=== PATIENT | female | born 1985 | race Caucasian/White ===

== ENCOUNTER 2017-10-19 06:02 | Inpatient (IN) | payer BC ==
[~2017-10-19 06:02] MED LIST: Buffered Lidocaine 0.9% SYRIN* 5 ML/SYR SYRINGE INTRADERM ONE; Famotidine IV* 10 MG/ML 2 ML (20 mg) IV ONE
[2017-10-19] MEDS ORDERED: ceFOXitin 2 GM IVPREMIX* 2 GM/50 ML BAG IVPB ONE (07:00)
[2017-10-19] MEDS ORDERED: Midazolam* 1 MG/ML 5 ML VIAL (5 MG) ONE (07:38)
[2017-10-19] MEDS ORDERED: fentaNYL* 50 MCG/ML 2 ML VIAL (100 MCG VIAL) ONE (07:38)
[2017-10-19] MEDS ORDERED: Morphine PF AMP (0.5MG/ML)* 5 MG/10 ML AMP ONE (07:38)
[2017-10-19] MEDS ORDERED: KETAMINE HCL* 50 MG/ML 10 ML VIAL ONE (07:38)
[2017-10-19] MEDS ORDERED: DiMENhydriNATE IV* 50 MG/ML VIAL IV PUSH PRN (08:17)
[2017-10-19] MEDS ORDERED: Naloxone* 0.4 MG/ML 1 ML VIAL IV PRN ×2 (08:17→08:19)
[2017-10-19] MEDS ORDERED: PROCHLORPERAZINE INJ 5 MG/ML 2 ML VIAL IV PRN (08:17)
[2017-10-19] MEDS ORDERED: Naloxone* 2 MG in NS 0.9% 250 ML* 250 ML IV PRN (08:17)
[2017-10-19] MEDS ORDERED: oxyCODONE/Acetamin 5/325 MG* TAB PO PRN ×2 (08:17→23:55)
[2017-10-19] MEDS ORDERED: Nalbuphine* 20 MG/ML 1 ML VIAL IV PRN (08:17)
[2017-10-19] MEDS ORDERED: diPHENhydraMINE IV* 50 MG/ML 1 ml VIAL (BENADRYL) IV PRN (08:17)
[2017-10-19] MEDS ORDERED: fentaNYL* 50 MCG/ML 2 ML VIAL (100 MCG VIAL) IV PRN (08:19)
[2017-10-19] MEDS ORDERED: EPHEDrine (Pressors)* 50 MG/ML VIAL ONE (08:59)
[2017-10-19] MEDS ORDERED: Bupivacaine-MPF SPINAL* 7.5 MG/2 ML AMP ONE (08:59)
[2017-10-19] MEDS ORDERED: Scopolamine 1.5 mg* PATCH ONE (08:59)
[2017-10-19] MEDS ORDERED: Phenylephrine IV* 40 MCG/ML 10 ML SYRINGE ONE (08:59)
[2017-10-19] MEDS ORDERED: Lidocaine 2% PF * 5 ML VIAL ONE (08:59)
[2017-10-19] MEDS ORDERED: Ketorolac INJ* 30 MG/ML 1 ML VIAL ONE (09:00)
[2017-10-19] MEDS ORDERED: PROCHLORPERAZINE INJ 5 MG/ML 2 ML VIAL ONE (09:00)
[2017-10-19] MEDS ORDERED: Witch Hazel PAD* JAR TOPICAL PRN (10:02)
[2017-10-19] MEDS: Ibuprofen TAB* 600 MG PO SCH ×3 (10:32→21:58)
[2017-10-19] MEDS: Simethicone TAB* 80 MG TAB.CHEW PO SCH ×3 (12:52→21:58)
[2017-10-19] MEDS: Docusate CAP* 100 MG PO SCH ×2 (12:52→21:58)
[2017-10-20] MEDS: oxyCODONE/Acetamin 5/325 MG* TAB PO PRN ×5 (02:08→21:06)
[2017-10-20] MEDS: Ibuprofen TAB* 600 MG PO SCH ×4 (04:45→23:03)
[2017-10-20 06:36] LABS: ABS Basophils 0.1 10^3/ul (0-0.2); ABS Eosinophils 0 10^3/ul (0-0.6); ABS Lymphocytes 2.3 10^3/ul (1.0-4.8); ABS Monocytes 0.9 10^3/ul (0-0.8); ABS Neutrophils 7.1 10^3/ul (1.5-7.7); ABS Nucleated RBC 0 10^3/ul; Eosinophil % 0.5 % (0-6); Hematocrit 27 % (35-47); Hemoglobin 8.8 g/dl (12.0-16.0); Lymphocyte % 22.1 % (25-47); Mean Corpuscular HGB Conc 33 g/dl (31-36); Mean Corpuscular Hemoglobin 26 pg (27-31); Mean Corpuscular Volume 79 fL (80-97); Mean Platelet Volume 9.4 um3 (7.4-10.4); Nucleated Red Blood Cells % 0; Platelet Count 155 10^3/ul (150-450); Red Blood Count 3.37 10^6/ul (4.0-5.4); Red Cell Distribution Width 15 % (10.5-15); White Blood Count 10.4 10^3/ul (3.5-10.8)
[2017-10-20] MEDS: Simethicone TAB* 80 MG TAB.CHEW PO SCH ×3 (08:10→21:06)
[2017-10-20] MEDS: Docusate CAP* 100 MG PO SCH ×3 (08:10→21:06)
[2017-10-20] MEDS: Ferrous Gluconate TAB* 324 MG TAB PO SCH ×2 (09:00→21:06)
--- NOTE | 2017-10-20 21:44 | OP ---
DATE OF OPERATION: 10/19/17 - ROOM #116 DATE OF : 85 SURGEON: Shefali Escobar MD HOSPITALIST NOCTURNIST PHYSICIAN: Anup Grant CNM ANESTHESIOLOGIST: Yemi Carroll MD ANESTHESIA: Spinal. PRE-OP DIAGNOSES: A 39 weeks' gestation with history of third-degree laceration and hemorrhage, and now with satisfied parity. POST-OP DIAGNOSES: A 39 weeks' gestation with history of third-degree laceration and hemorrhage, and now with satisfied parity. OPERATIVE PROCEDURE: Primary low-transverse section and bilateral tubal ligation. INDICATIONS: This patient is a 32-year-old 2, para 1, who reported a history of a third-degree laceration with difficult recovery after her last delivery. In addition, she also had a hemorrhage, which required transfusion. After extensive counseling, the patient desired to have a primary section performed in order to avoid these complications of vaginal delivery. In addition, the patient strongly desired to have a permanent sterilization. She is extensively counseled and consent was signed. ESTIMATED BLOOD LOSS: 800 cc. URINE OUTPUT: 1000 cc. IV FLUIDS: 3000 cc lactated Ringer's. MATERIALS TO LAB: Cord blood and bilateral tube segments. FINDINGS: Normal-appearing uterus, fallopian tubes, and ovaries. Delivery is productive of a 9-pound 15-ounce male with Apgars of 9 and 9. Time of delivery was 0823. DESCRIPTION OF PROCEDURE: The risks, benefits, and alternatives were described to the patient and informed consent was obtained. The patient was taken to the operating room with IV running where spinal anesthesia was induced and found to be adequate. The patient was prepped and draped in the normal sterile fashion in the dorsal supine position with leftward tilt. A Pfannenstiel skin incision was made with a scalpel and this was carried down to the underlying fascia sharply. The fascia was then scored in the midline with the scalpel. The incision was extended using Cunningham scissors. The rectus muscles were dissected off the rectus fascia using blunt and sharp dissection. The rectus muscles were in the midline bluntly. The peritoneum was also entered bluntly. A bladder blade was placed. A bladder flap was created sharply using Metzenbaum scissors. A low transverse uterine incision was made with the scalpel. This was carried down to the amniotic cavity which was productive of clear fluid. The incision was extended with blunt traction. The head was elevated to the level of the incision without difficulty and delivered through the incision. With fundal pressure, the shoulders and body delivered without difficulty. The infant had an excellent tone and cried immediately on delivery. The cord was doubly clamped and cut. The infant was then handed to the awaiting water pumping station engineer. Cord blood was collected. The placenta then delivered with manual extraction. The uterus was then exteriorized and cleared of all clots and debris. Uterine incision was reapproximated using 0 Polysorb in a running-locked fashion. A second layer of imbricating sutures of 0 Polysorb was also placed with good hemostasis. The posterior cul-de-sac was irrigated with saline. The uterus was then returned to the abdomen, and the incision was reinspected and noted to be hemostatic. The peritoneum was closed with 2-0 chromic in a running fashion. The fascia was closed with 0 Polysorb in a running fashion. Subcutaneous tissues were reapproximated using 2-0 chromic and interrupted sutures. The skin was then closed with 4-0 Monocryl in a subcuticular stitch. Mastisol and Steri-Strips were placed over the incision which was then covered with a sterile bandage. The patient tolerated the procedure well. Sponge, lap, and needle counts were correct x2. [id number]/[facility] #: [id number] KATHARINA
[2017-10-21] MEDS: oxyCODONE/Acetamin 5/325 MG* TAB PO PRN ×5 (00:59→20:54)
[2017-10-21] MEDS: Ibuprofen TAB* 600 MG PO SCH ×3 (05:00→18:25)
[2017-10-21] MEDS: Simethicone TAB* 80 MG TAB.CHEW PO SCH ×5 (08:17→20:53)
[2017-10-21] MEDS: Ferrous Gluconate TAB* 324 MG TAB PO SCH ×2 (08:17→20:54)
[2017-10-21] MEDS: Docusate CAP* 100 MG PO SCH ×3 (08:17→20:53)
[2017-10-22] MEDS: Ibuprofen TAB* 600 MG PO SCH ×4 (00:10→12:20)
[2017-10-22] MEDS: oxyCODONE/Acetamin 5/325 MG* TAB PO PRN ×2 (06:14→11:15)
[2017-10-22] MEDS: Docusate CAP* 100 MG PO SCH (07:52)
[2017-10-22] MEDS: Simethicone TAB* 80 MG TAB.CHEW PO SCH (07:52)
[2017-10-22] MEDS: Ferrous Gluconate TAB* 324 MG TAB PO SCH (07:52)
[2017-10-22 08:08] VITALS: BP 124/80
[2017-10-22] MEDS ORDERED: Scopolamine PATCH Remove* 1 NOTE MISC PATCH OFF PRN (08:18)
== END 2017-10-22 12:30 | disposition home or self-care (01) | DRG 540 ==
LOC: MCHOB 06:02
PROVIDERS: ADMIT Obstetrics & Gynecology; ATTEND Obstetrics & Gynecology
PROC: 0UB70ZZ Excision of Bilateral Fallopian Tubes, Open Approach (ICD-10-PCS; 2017-10-19)
PROC: 10D00Z1 Extraction of Products of Conception, Low, Open Approach (ICD-10-PCS; principal; 2017-10-19 07:45)
DX: O48.0 Post-term pregnancy (principal); O90.81 Anemia of the puerperium; D64.9 Anemia, unspecified; Z3A.40 40 weeks gestation of pregnancy; Z37.0 Single live birth
CPT/HCPCS: 36415; 85025; 88302; A9270-GY; J0694; J0780; J1885; J2250; J3010

== ENCOUNTER 2019-03-30 18:30 | Emergency (ER) | payer BC ==
[2019-03-30 19:23] VITALS: BP 129/81
--- NOTE | 2019-03-30 19:39 | UC ---
HPI Febrile Illness - HPI Summary HPI Summary: ONSET 4 DAYS AGO WITH FATIUGE,SINUS AND HEAD CONGESITON , LOST HER VOICE TWO DAYS AGO. MILD COUGH. NO CHEST CONGESTION. SLIGHT SORE THROAT AND STATES TONSILS ARE INFLAMED. TODAY FEVER BEGAN 101.8 AT HOME. CHILLS, BODYACHES. NO VOMITING OR DIARRHEA. - History of Current Complaint Chief Complaint: UCRespiratory Time Seen by Provider: 03/30/19 19:04 Hx Obtained From: Patient Hx Last Menstrual Period: 03/08/19 Onset/Duration: Started Days Ago Timing: Constant Initial Severity: Mild Current Severity: Moderate Pain Intensity: 4 Associated Signs and Symptoms: Chills, Headache, Myalgia - Allergy/Home Medications Allergies/Adverse Reactions: Allergies Allergy/AdvReac Type Severity Reaction Status Date / Time latex glue Allergy Unknown Rash Uncoded 03/30/19 19:08 surgical soap Allergy Unknown Rash Uncoded 03/30/19 19:08 Home Medications: Home Medications Calcium Carbonate CHEW TAB* [Tums*] 1,000 mg PO BID PRN 03/30/19 [History Confirmed 03/30/19] Cholecalciferol TAB* [Vitamin D TAB*] 1,000 unit PO DAILY 03/30/19 [History Confirmed 03/30/19] Multivitamin [Multivitamins] 1 cap PO DAILY 03/30/19 [History Confirmed 03/30/19 ] Naproxen Sodium [Naproxen 220 mg] 220 mg PO PRN 03/30/19 [History] PMH/Surg Hx/FS Hx/Imm Hx Previously Healthy: Yes - Surgical History Surgical History: Yes Surgery Procedure, Year, and Place: CHOLYCYSTECTOMY AND UMBILLICAL HERNIA REPAIR- DECEMBER 2018. AND TUBAL LIGATION- SEPTEMBER 2017 - Family History Known Family History: Positive: Hypertension - Social History Alcohol Use: Occasionally Substance Use Type: None Smoking Status (MU): Never Smoked Tobacco Have You Smoked in the Last Year: No - Immunization History Most Recent Influenza Vaccination: 02/2017 Most Recent Tetanus Shot: 11/07/14 Most Recent Pneumonia Vaccination: unknown Review of Systems All Other Systems Reviewed And Are Negative: Yes Constitutional: Positive: Fever, Chills, Fatigue ENT: Positive: Sore Throat Respiratory: Positive: Cough Musculoskeletal: Positive: Myalgia Neurological: Positive: Headache Is Patient Immunocompromised?: No Physical Exam Triage Information Reviewed: Yes Appearance: Well-Nourished, Ill-Appearing, Pain Distress Vital Signs: Initial Vital Signs Temp 101.3 F 03/30/19 19:10 Pulse 129 03/30/19 19:10 Resp 20 03/30/19 19:10 BP 129/81 03/30/19 19:10 Pulse Ox 100 03/30/19 19:10 Vital Signs Reviewed: Yes Eyes: Positive: Conjunctiva Inflamed ENT: Positive: Pharyngeal erythema, Nasal congestion, TM bulging, Tonsillar swelling, Tonsillar exudate Dental Exam: Normal Neck exam: Normal Neck: Positive: Enlarged Nodes @ - bilateral cervical Respiratory Exam: Normal Respiratory: Positive: Chest non-tender, Lungs clear, Normal breath sounds, Wheezing, Inspiration Cardiovascular Exam: Normal Cardiovascular: Positive: No Murmur, Pulses Normal, Tachycardia Abdominal Exam: Normal Bowel Sounds: Positive: Present Musculoskeletal Exam: Normal Neurological Exam: Normal Psychological Exam: Normal Skin Exam: Normal Course/Dx - Course Course Of Treatment: hx obtained, exam performed ,meds reviewed, rapid flu obtained. treaed for tonsillitis - Febrile Illness Differential Diagnoses: Bacteremia, Other: - flu, strep tonsillitis - Diagnoses Provider Diagnosis: Tonsillitis Discharge ED - Sign-Out/Discharge Documenting (check all that apply): Patient Departure All imaging exams completed and their final reports reviewed: No Studies - Discharge Plan Condition: Stable Disposition: HOME Patient Education Materials: Fever in Adults (ED) Referrals: Tatyana Mullins PA [Primary Care Provider] - Additional Instructions: 1. take the medication if not improving in the next 36-48 hours 2. Increase fluids and get plenty of rest 3. COntinue with iburprofen and tylenol for pain and fever. 4. Follow up if sypmtoms are not improving in the next week. - Billing Disposition and Condition Condition: STABLE Disposition: Home
[2019-03-30 19:44] LABS: Influenza A Molecular NEGATIVE (Negative); Influenza B Molecular NEGATIVE (Negative)
[2019-03-30] MEDS ORDERED: Acetaminophen TAB* 325 MG PO ONE (19:48)
== END 2019-03-30 20:03 | disposition home or self-care (01) ==
LOC: UCCORT 18:30
DX: J03.90 Acute tonsillitis, unspecified (principal); M79.10 Myalgia, unspecified site; R53.83 Other fatigue; Z91.040 Latex allergy status; Z91.09 Other allergy status, other than to drugs and biological substances
CPT/HCPCS: 99212; A9270-GY; G0463